=== PATIENT | male | born 1950 | race Caucasian/White ===

== ENCOUNTER 2017-02-18 16:47 | Emergency (ER) | payer MEDICARE ==
--- NOTE | ~2017-02-18 | CR142 ---
[facility] A Service of [facility] & [facility] RADIOLOGY TEXT RESULTS PATIENT: SHAYY DUKES LOCATION: [facility] : 48 UNIT #: [id number] AGE: [address]: ROHAN STEWART APRN SEX: M ORDER DR: [id number] [place], [place] [address] [id number] E MR#: [id number] Acc #: [id number] NAME: SHAYY DUKES : 1950 SEX: M STUDY DATE/TIME: 02/18/2017 17:07 UNIT: [facility] ROOM: STUDY DESCRIPTION: CR Hand Min 3 Views Rt Attending Physician: Rohan Stewart Aprn Ordering Physician: Ed Gregory Aguilera M.D. Primary Care Physician: Jona Padilla M.D. MEDICAL IMAGING REPORT This report is preliminary unless electronic signature is present EXAM Right hand. INDICATIONS Right hand trauma. Laceration of the second and third digits on a table saw. FINDINGS 3 views of the right second and third digit without comparison. There is no acute fracture or dislocation. No foreign body. IMPRESSION No foreign body. Dictated by... Brigido Stacy M.D. THIS IS AN ELECTRONICALLY VERIFIED REPORT Brigido Stacy M.D. at 02/19/2017 3:05 PM HAILE/margarita TD: 02/19/2017 09:57 JOB #: [id number] MEDICAL IMAGING REPORT Page 1 of 1 COPY
[~2017-02-18 16:47] MED LIST: ALBUTEROL17 GM INH; ASPIRIN81 MG PO; COREG3.125 MG PO; CRESTOR40 MG PO; EFFIENT10 MG PO; LISINOPRIL10 MG PO; NASONEX17 GM; NITROGLYCERIN0.4 MG SL; SIMVASTATIN40 MG PO
== END 2017-02-18 21:31 | disposition home or self-care (01) ==
LOC: CED 16:47
DX: S61.210A Laceration without foreign body of right index finger without damage to nail, initial encounter (principal); S61.212A Laceration without foreign body of right middle finger without damage to nail, initial encounter; Z23 Encounter for immunization; W29.8XXA Contact with other powered hand tools and household machinery, initial encounter; Y92.009 Unspecified place in unspecified non-institutional (private) residence as the place of occurrence of the external cause
CPT/HCPCS: 73130; 90471; 90715; 99283